=== PATIENT | female | born 1950 | race African-American/Black ===

== ENCOUNTER 2020-05-19 06:35 | Emergency (ER) | payer OTHER ==
[~2020-05-19] VITALS: Ht 165.1 cm; Wt 82.0 kg
[~2020-05-19 06:35] MED LIST: UNKNOWN BP MEDS
[2020-05-19 08:23] LABS: BASOPHILS % 0.7 % (0.0-2.0); EOSINOPHILS % 1.9 % (0.0-5.0); HEMATOCRIT. 36.1 % (36.0-48.0); LYMPHOCYTES % 15.8 % (20.0-50.0); MEAN CORPUSCULAR HEMOGLOBIN 31.2 pg (28.0-32.0); MEAN PLATELET VOLUME 8.5 fl (7.4-10.4); MONOCYTES % 4.7 % (2.0-8.0); NEUTROPHILS % 76.9 % (40.0-76.0); PLATELET 269 x1000/uL (130-400); RED BLOOD CELL COUNT 3.84 mill/uL (4.2-5.4); RED CELL DISTRIBUTION WIDTH 15.4 % (11.6-14.6)
[2020-05-19 09:31] LABS: D-DIMER 0.32 mg/L FEU (<0.50); INR 1.5; PROTHROMBIN TIME 15.3 sec (9.6-11.0)
[2020-05-19 09:34] LABS: CLARITY URINE CLEAR (CLEAR); COLOR URINE YELLOW (YELLOW); KETONES URINE NEGATIVE (NEGATIVE); LEUKOCYTE ESTERASE URINE NEGATIVE (NEGATIVE); NITRITE URINE NEGATIVE (NEGATIVE); OCCULT BLOOD URINE TRACE (NEGATIVE); PH URINE 5.5 (4.5-8.0); PROTEIN URINE TRACE (NEGATIVE); SPECIFIC GRAVITY URINE 1.012 (1.005-1.030); UROBILINOGEN URINE 0.2 E.U./dL (0.2-1.0)
[2020-05-19] MEDS ORDERED: CEFTRIAXONE 1 G PREMIX 50 ML IV ONE (09:45)
[2020-05-19] MEDS ORDERED: AZITHROMYCIN 500 MG in DEXT 5% WATER 250 ML IV SCH (09:45)
[2020-05-19 11:01] LABS: BG BASE EXCESS -0.1 mmol/L (-2.0-2.0); BG CARBOXYHEMOGLOBIN 0.6 % (0.5-1.5); BG DEOXYHEMOGLOBIN 5.7 % (0.0-5.0); BG FRACTION INSPIRED OXYGEN 36; BG HCO3 ACT 25.6 mmol/L (22.0-26.0); BG METHEMOGLOBIN 0.3 % (0.0-1.5); BG OXYGEN SATURATION 94.2 % (92.0-98.5); BG OXYHEMOGLOBIN 93.4 % (94.0-97.0); BG PCO2 45.7 mmHg (35.0-45.0); BG PH 7.366 (7.350-7.450); BG PO2 80.1 mmHg (75.0-100.0); BG SAMPLE SITE RIGHT RADIAL; BG TOTAL HEMOGLOBIN 12.5 g/dL (12.0-18.0); BG VENT MODE NASAL CANNULA
[2020-05-19 12:27] LABS: CHLORIDE 112 mEq/L (98-107)
[2020-05-19 12:36] LABS: CREATINE KINASE 63 IU/L (26-192)
[2020-05-19 14:47] VITALS: BP 138/77
== END 2020-05-19 15:00 | disposition short-term general hospital (02) ==
LOC: ER 06:41
DX: J44.1 Chronic obstructive pulmonary disease with (acute) exacerbation (principal); R09.02 Hypoxemia; Z03.818 Encounter for observation for suspected exposure to other biological agents ruled out; F17.210 Nicotine dependence, cigarettes, uncomplicated
CPT/HCPCS: 36415; 36600; 71045; 80053; 81003; 82375; 82550; 82805; 83605; 83615; 83880; 84145; 84484; 85025; 85379; 85384; 85610; 86140; 87040; 93005; 96365; 96368; 99285; C9803; J0456; J0696; J7060; U0003

== ENCOUNTER 2023-01-10 12:37 | Emergency (ER) | payer OTHER ==
[~2023-01-10] VITALS: Ht 157.5 cm; Wt 92.0 kg
[2023-01-10 12:42] VITALS: O2SAT 95
[2023-01-10] MEDS ORDERED: KETOROLAC 30MG/ML VIAL IM ONE (15:15)
[2023-01-10] MEDS ORDERED: NAPROXEN 500MG TABLET PO NR (16:15)
[2023-01-10] MEDS ORDERED: NAPROXEN 375MG TABLET PO ONE (16:15)
[2023-01-10] MEDS ORDERED: PREDNISONE 20MG TABLET PO ONE (16:15)
[2023-01-10] MEDS ORDERED: PREDNISONE 20MG TABLET PO NR (16:15)
[2023-01-10 16:56] LABS: HEMATOCRIT. 41.8 % (36.0-48.0); HEMOGLOBIN. 13.9 g/dL (12.0-16.0); MEAN CORPUSCULAR HEMOGLOBIN 31.4 pg (28.0-32.0); MEAN CORPUSCULAR HGB CONC 33.3 g/dL (31.0-37.0); MEAN CORPUSCULAR VOLUME 94.4 fL (81.0-99.0); MEAN PLATELET VOLUME 7.8 fl (7.4-10.4); PLATELET 287 x1000/uL (130-400); RED BLOOD CELL COUNT 4.42 mill/uL (4.2-5.4); RED CELL DISTRIBUTION WIDTH 14.3 % (11.6-14.6); WHITE BLOOD COUNT 11.7 x1000/uL (4.5-11.0)
[2023-01-10 16:58] LABS: DIFFERENTIAL COMMENT 1
[2023-01-10 16:59] LABS: CHLORIDE 100 mEq/L (98-107); INDEX HEMOLYSI 1 (1-3); INDEX ICTERIC 1 (1-4); INDEX LIPEMIC 1 (1-3); POTASSIUM 3.3 mEq/L (3.5-5.1); SODIUM 139 mEq/L (136-145)
[2023-01-10 17:10] LABS: ALANINE AMINOTRANSFERASE 18 IU/L (13-61); ALBUMIN 3.6 g/dL (3.4-5.0); ASPARTATE AMINOTRANSFERASE 18 IU/L (15-37); CARBON DIOXIDE 34 mEq/L (21-32); CREATININE 1.8 mg/dL (0.6-1.3); GLUCOSE 124 mg/dL (70-105); PROTEIN TOTAL 7.7 g/dL (6.0-8.3); UREA NITROGEN BLOOD 51 mg/dL (7-21)
[2023-01-10 17:50] LABS: PLATELET ESTIMATE NORMAL
[2023-01-10 19:59] VITALS: BP 149/87; PULSE 92; RESP 16; TEMP 98.1
== END 2023-01-10 21:11 | disposition short-term general hospital (02) ==
LOC: ER 12:37
DX: M10.9 Gout, unspecified (principal); I11.0 Hypertensive heart disease with heart failure; I50.9 Heart failure, unspecified; J44.9 Chronic obstructive pulmonary disease, unspecified
CPT/HCPCS: 99285; 93971; 80053; 85025; 36415; 96372; J7512; J1885

== ENCOUNTER 2024-11-13 11:56 | Inpatient (IN) | payer MEDICARE, OTHER ==
[~2024-11-13] VITALS: Ht 157.5 cm; Wt 87.1 kg
[2024-11-13 13:07] LABS: BG BASE EXCESS -4.1 mmol/L (-2.0-3.0); BG CARBOXYHEMOGLOBIN 0.3 % (0.5-1.5); BG DEOXYHEMOGLOBIN 7.4 % (0.0-5.0); BG FLOW(L/min) 2.00 L/min; BG FRACTION INSPIRED OXYGEN 28; BG HCO3 ACT 19.7 mmol/L (21.0-28.0); BG METHEMOGLOBIN 0.6 % (0.5-1.5); BG OXYGEN SATURATION 92.5 % (94.0-98.0); BG OXYHEMOGLOBIN 91.7 % (94.0-98.0); BG PCO2 31.8 mmHg (32.0-45.0); BG PH 7.409 (7.350-7.450); BG PO2 76.3 mmHg (83.0-108.0); BG SAMPLE SITE RIGHT RADIAL; BG TOTAL HEMOGLOBIN 11.3 g/dL (12.0-16.0); BG VENT MODE NASAL CANNULA
[2024-11-13 13:29] LABS: BASOPHILS % 0.7 % (0.0-2.0); EOSINOPHILS % 4.4 % (0.0-5.0); HEMATOCRIT. 32.8 % (36.0-48.0); HEMOGLOBIN. 10.6 g/dL (12.0-16.0); LYMPHOCYTES % 14.6 % (20.0-50.0); MEAN PLATELET VOLUME 8.4 fl (7.4-10.4); MONOCYTES % 7.5 % (2.0-8.0); NEUTROPHILS % 72.8 % (40.0-76.0); PLATELET 209 x1000/uL (130-400); RED BLOOD CELL COUNT 3.45 mill/uL (4.2-5.4); RED CELL DISTRIBUTION WIDTH 19.4 % (11.6-14.6)
[2024-11-13] MEDS: FUROSEMIDE 40MG/4ML VIAL IV STA (13:35)
[2024-11-13 13:48] LABS: CREATININE 1.7 mg/dL (0.6-1.0)
[2024-11-13 13:49] LABS: UREA NITROGEN BLOOD 29 mg/dL (9-23)
[2024-11-13 14:17] LABS: TROPONIN I HIGH SENSITIVITY 43 ng/L (3.0-34)
[2024-11-13] MEDS: CEFTRIAXONE 1GM/50ML 50 ML IV ONE (14:43)
[2024-11-13 15:19] LABS: CLARITY URINE CLEAR (CLEAR); COLOR URINE YELLOW (YELLOW); GLUCOSE URINE 1+ (NEGATIVE); KETONES URINE NEGATIVE (NEGATIVE); LEUKOCYTE ESTERASE URINE NEGATIVE (NEGATIVE); NITRITE URINE NEGATIVE (NEGATIVE); OCCULT BLOOD URINE NEGATIVE (NEGATIVE); PH URINE 5.5 (4.5-8.0); PROTEIN URINE NEGATIVE (NEGATIVE); SPECIFIC GRAVITY URINE 1.008 (1.005-1.030); UROBILINOGEN URINE 0.2 E.U./dL (0.2-1.0)
[2024-11-13 15:22] LABS: CREATININE 1.7 mg/dL (0.6-1.0); UREA NITROGEN BLOOD 26 mg/dL (9-23)
[2024-11-13 15:23] LABS: ASPARTATE AMINOTRANSFERASE 24 IU/L (<34)
[2024-11-13 15:24] LABS: BILIRUBIN DIRECT 0.3 mg/dL (<=3.0); BILIRUBIN TOTAL 0.9 mg/dL (0.1-1.0); PROTEIN TOTAL 6.3 g/dL (6.0-8.3)
[2024-11-13 15:29] LABS: RBC URINE 0-2 /hpf (0-2); SQUAMOUS EPITHELIAL CELL URINE RARE /lpf (RARE/1+)
[2024-11-13 15:30] LABS: BACTERIA URINE NONE SEEN
[2024-11-13 15:31] LABS: WBC URINE 0-2 /hpf (0-2)
[2024-11-13] MEDS: AZITHROMYCIN 500MG/250ML 250 ML IV ONE (15:39)
[2024-11-13] MEDS ORDERED: FURO20TA4 PO (20:29)
[2024-11-13] MEDS ORDERED: SPIR25TA6 PO (20:29)
[2024-11-13] MEDS ORDERED: METO25TA6 PO (20:29)
[2024-11-13] MEDS ORDERED: EMPA25TA PO (20:29)
[2024-11-13] MEDS ORDERED: EZET10TA81 PO (20:29)
[2024-11-13] MEDS ORDERED: DABI75CA3 PO (20:29)
[2024-11-13] MEDS ORDERED: DILT-26 PO (20:29)
[2024-11-13] MEDS ORDERED: ATOR40TA70 PO (20:29)
[2024-11-13] MEDS ORDERED: COLC0.6C3 PO (20:29)
[2024-11-14] VITALS (8 sets, daily range): BP systolic 111–140; BP diastolic 71–85; PULSE 64–108; RESP 17–20; TEMP 30.9–36.5292; O2SAT 92–100
[2024-11-14 05:49] LABS: BASOPHILS % 0.6 % (0.0-2.0); EOSINOPHILS % 6.1 % (0.0-5.0); HEMATOCRIT. 30.6 % (36.0-48.0); HEMOGLOBIN. 9.9 g/dL (12.0-16.0); LYMPHOCYTES % 12.8 % (20.0-50.0); MEAN PLATELET VOLUME 8.2 fl (7.4-10.4); MONOCYTES % 9.4 % (2.0-8.0); NEUTROPHILS % 71.1 % (40.0-76.0); PLATELET 198 x1000/uL (130-400); RED BLOOD CELL COUNT 3.23 mill/uL (4.2-5.4); RED CELL DISTRIBUTION WIDTH 19.4 % (11.6-14.6)
[2024-11-14 06:11] LABS: CREATININE 1.6 mg/dL (0.6-1.0); UREA NITROGEN BLOOD 27 mg/dL (9-23)
[2024-11-14 06:13] LABS: ASPARTATE AMINOTRANSFERASE 17 IU/L (<34); BILIRUBIN TOTAL 0.7 mg/dL (0.1-1.0); PROTEIN TOTAL 5.6 g/dL (6.0-8.3)
[2024-11-14] MEDS: IPRATROPIUM/ALBUTEROL 0.5-3(2.5)MG/3ML NEB HHN SCH (09:10)
[2024-11-14] MEDS: FUROSEMIDE 40MG/4ML VIAL IVP SCH (09:53)
[2024-11-14] MEDS: ENOXAPARIN 30MG/0.3ML SYR SUBCUT SCH (09:53)
[2024-11-14] MEDS: LOSARTAN 50 MG TABLET PO SCH (09:54)
[2024-11-14] MEDS: CARVEDILOL 3.125 MG TABLET PO SCH (09:54)
[2024-11-14] MEDS: ATORVASTATIN CALCIUM 40MG TABLET PO SCH (21:21)
[2024-11-15] VITALS (8 sets, daily range): BP systolic 122–151; BP diastolic 77–89; PULSE 64–110; RESP 16–18; TEMP 36.4–37; O2SAT 94–98
[2024-11-16] VITALS (7 sets, daily range): BP systolic 130–141; BP diastolic 67–91; PULSE 82–106; RESP 17–19; TEMP 36.7–36.9; O2SAT 96–98
== END 2024-11-16 15:00 | disposition home or self-care (01) | DRG 280 ==
LOC: ER 11:56 → EDBEDREQ 16:55 → EDBEDREQTM 16:55 → ENRESERV 17:04 → 5WST 17:22
PROVIDERS: ADMIT Internal Medicine; ATTEND Internal Medicine
DX: I13.0 Hypertensive heart and chronic kidney disease with heart failure and stage 1 through stage 4 chronic kidney disease, or unspecified chronic kidney disease (principal); I50.23 Acute on chronic systolic (congestive) heart failure; I21.4 Non-ST elevation (NSTEMI) myocardial infarction; N17.9 Acute kidney failure, unspecified; I42.0 Dilated cardiomyopathy; D64.9 Anemia, unspecified; J44.9 Chronic obstructive pulmonary disease, unspecified; N18.9 Chronic kidney disease, unspecified
CPT/HCPCS: 36415; 36600; 71045; 80048; 80053; 80076; 81003; 82375; 82805; 83605; 83880; 84145; 84484; 85025; 93005; 93306; 94070; 94640; 94664; 99291; J0456; J0696; J1650; J1938